=== PATIENT | male | born 1995 | race African-American/Black ===

== ENCOUNTER 2024-06-10 13:13 | Emergency (ER) | payer OTHER ==
[~2024-06-10] VITALS: Ht 175.3 cm; Wt 68.0 kg
[2024-06-10 14:45] VITALS: BP 136/85; TEMP 98.5; O2SAT 100
== END 2024-06-10 14:46 ==
LOC: ER 13:13
DX: F15.10 Other stimulant abuse, uncomplicated (principal); F17.200 Nicotine dependence, unspecified, uncomplicated; F32.A Depression, unspecified; F41.9 Anxiety disorder, unspecified; Z60.2 Problems related to living alone